=== PATIENT | male | born 1990 | race Caucasian/White ===

== ENCOUNTER 2021-01-03 08:30 | Outpatient (RCR) | payer BC ==
[~2021-01-03 08:30] MED LIST: HYDR15SO6 GT; LEVO200T6 PO; PANT40TA2 PO
--- NOTE | 2021-02-05 14:23 | 30 Day Event Recorder ---
30-DAY EVENT RECORDER 30-DAY EVENT RECORDER DATE OF PROCEDURE: 01/03/2021-02/01/2021. INDICATION: Palpitations. PROCEDURE: A 30-day event recorder was obtained for a total of thirty days. 93 rhythm strips were presented for review. The study quality is adequate. RESULTS: 1. Baseline sinus rhythm with an average heart rate of 75 bpm, ranging from 47-153 bpm with rare, supraventricular premature complexes representing less than 1% of the total recording time and frequent, ventricular premature complexes some of which was in bigeminy representing 8% of the total recording time. 2. There were no high-grade arrhythmias and no evidence of atrial fibrillation. 3. There were no pauses exceeding 2 seconds in duration. 4. There were 16 patient triggered events that correlated to sinus rhythm and sinus tachycardia with heart rates ranging from 79-122 bpm and during 11 of these episodes there were premature ventricular complexes. IMPRESSION: 1. This is a 30-day event monitor report. 2. Baseline sinus rhythm with an average heart rate of 75 bpm, ranging from 47- 153 bpm with rare, supraventricular premature complexes representing less than 1% of the total recording time and frequent, ventricular premature complexes some of which was in bigeminy representing 8% of the total recording time. 3. There were 16 patient triggered events that correlated to sinus rhythm and sinus tachycardia with heart rates ranging from 79-122 bpm and during 11 of these episodes there were premature ventricular complexes. Certain portions of this document may have been dictated utilizing voice recognition technology. Inherent to this technology, typographical and grammatical errors may exist. As much as I am diligent to identify and correct these mistakes, some errors may remain in the document. HODAN PHAN JR, MD Feb 05, 2021 14:23
== END 2021-04-03 ==
LOC: CARD 08:30
PROVIDERS: ATTEND Internal Medicine Cardiovascular Disease
DX: R00.2 Palpitations (principal)

== ENCOUNTER 2022-12-05 14:15 | Outpatient (RCR) | payer BC | END 2022-12-06 | disposition home or self-care (01) | PROVIDERS: ATTEND Family Medicine Sports Medicine | DX: S43.432D Superior glenoid labrum lesion of left shoulder, subsequent encounter (principal); X58.XXXD Exposure to other specified factors, subsequent encounter ==